=== PATIENT | male | born 1960 ===

== ENCOUNTER 2018-06-27 10:18 | Emergency (ER) | payer OTHER ==
[2018-06-27 10:32] VITALS: BMI 23.9
--- NOTE | 2018-06-27 11:19 | ED PDOC ---
HPI: Skin/Bite Injury Time Seen by Provider: 06/27/18 10:24 Chief Complaint (Nursing): Abnormal Skin Integrity Chief Complaint (Provider): "Infection" History Per: Patient Additional Complaint(s): 57 yo male, denies nay PMH, presents to ED due to a worsening red, swollen, painful and now draining mass to left forearm. Pt reports the mass started off as a "small pimple." However, symptoms worsened in the last 3 days. Pt reports pain with flexion of arm at this time. tactiel fever at home reported as well. Past Medical History Reviewed: Nursing Documentation, Vital Signs Vital Signs: Last Vital Signs Temp 99.3 F 06/27/18 10:30 Pulse 83 06/27/18 10:30 Resp 15 06/27/18 10:30 BP 108/61 06/27/18 10:30 Pulse Ox 97 06/27/18 10:30 - Medical History PMH: No Chronic Diseases - Surgical History Surgical History: No Surg Hx - Family History Family History: States: Unknown Family Hx - Living Arrangements Living Arrangements: With Family - Social History Current smoker - smoking cessation education provided: No Alcohol: Social Drugs: Denies - Immunization History Hx Tetanus Toxoid Vaccination: No Hx Influenza Vaccination: No Hx Pneumococcal Vaccination: No - Home Medications Home Medications: Ambulatory Orders Medication Instructions Recorded Clindamycin [Cleocin] 300 mg PO BID #14 cap 06/27/18 Mupirocin 2% Cream [Bactroban 30 applic TOP BID #1 tube 06/27/18 Cream] - Allergies Allergies/Adverse Reactions: Allergies Allergy/AdvReac Type Severity Reaction Status Date / Time Penicillins Allergy RASH Verified 06/27/18 10:55 Review of Systems ROS Statement: Except As Marked, All Systems Reviewed And Found Negative Skin: Positive for: Lesions Physical Exam - Reviewed Nursing Documentation Reviewed: Yes Vital Signs Reviewed: Yes - Physical Exam Appears: Positive for: Well, Non-toxic, No Acute Distress Head Exam: Positive for: ATRAUMATIC, NORMAL INSPECTION, NORMOCEPHALIC Skin: Positive for: Normal Color, Warm, DRY Eye Exam: Positive for: EOMI, Normal appearance, PERRL ENT: Positive for: Normal ENT Inspection Neck: Positive for: Normal, Painless ROM Cardiovascular/Chest: Positive for: Regular Rate, Rhythm Respiratory: Positive for: CNT, Normal Breath Sounds Gastrointestinal/Abdominal: Positive for: Normal Exam, Soft Back: Positive for: Normal Inspection Extremity: Positive for: Normal ROM, Tenderness, Other ((+) 4 cm open ulcerated mass to left foream, draining serous-sengiunous fluid, ~ 5 cm area of surrounding erytehma) Neurological/Psych: Positive for: Awake, Alert, Normal Tone - Laboratory Results Result Diagrams: 06/27/18 11:30 06/27/18 11:30 - ECG O2 Sat by Pulse Oximetry: 97 Medical Decision Making Medical Decision Making: IV access established and diagnostics ordered. Wound culture obtained, as well as blood cultures and IV Vanco started. Site needle aspirated, no purulent discharge obtained. Pt reported (+) PCN allergy Labs resulted and reviewed. XR: NAd, as read by [facility] XR IMPRESSION: No evidence of abscess. Possible focal cellulitis. Pt stable for discharge at this time with trial on outpt therapy. Pt advised warm compresses and to continue antibiotic regimen as prescribed advised wound check in 48 hours. return to ED if at anytime condition worsens Disposition - Clinical Impression Clinical Impression: Cellulitis, Abscess - Patient ED Disposition Is Patient to be Admitted: No - Disposition Disposition: Routine/Home Disposition Time: 15:25 Condition: STABLE Prescriptions: Clindamycin [Cleocin] 300 mg PO BID #14 cap Mupirocin 2% Cream [Bactroban Cream] 30 applic TOP BID #1 tube Instructions: Cellulitis (Skin Infection), Adult (DC), Skin Abscess Forms: [facility] (Nepali)
[2018-06-27 11:38] LABS: BASO % 0.4 % (0.0-2.0); EOS # 0.1 K/uL (0.0-0.7); EOS % 0.7 % (0.0-4.0); HEMOGLOBIN 9.5 g/dL (12.0-18.0); LYMPH # 0.7 K/uL (1.0-4.3); LYMPH % 5.7 % (20.0-40.0); MEAN CELL VOLUME 64.8 fl (80.0-94.0); MEAN CORPUSCULAR HEMOGLOBIN 19.5 pg (27.0-31.0); MEAN CORPUSCULAR HGB CONC 30.2 g/dL (33.0-37.0); MEAN PLATELET VOLUME 7.2 fl (7.2-11.7); MONO # 1.4 K/uL (0.0-0.8); MONO % 10.6 % (0.0-10.0); NEUT # 10.9 K/uL (1.8-7.0); NEUT % 82.6 % (50.0-75.0); NRBC % 0.1 % (0.0-0.0); PLATELET COUNT 359 K/uL (130-400); RBC 4.85 Mil/uL (4.40-5.90); RED CELL DISTRIBUTION WIDTH 18.4 % (11.5-14.5); WHITE BLOOD COUNT 13.2 K/uL (4.8-10.8)
[2018-06-27] MEDS ORDERED: Vancomycin 1 g Inj ONE (11:38)
[2018-06-27 11:42] LABS: VENOUS BLOOD GAS BASE EXCESS 1.9 mmol/L (0.0-2.0); VENOUS BLOOD GAS PCO2 50 mmHg (40-60); VENOUS BLOOD GAS PO2 26 mm/Hg (30-55); VENOUS BLOOD PH 7.36 (7.32-7.43)
[2018-06-27 11:58] LABS: ALB/GLOB RATIO 1.3 (1.0-2.1); ALBUMIN 4.4 g/dL (3.5-5.0); ALT/SGPT 15 U/L (21-72); AST/SGOT 21 U/L (17-59); BLOOD UREA NITROGEN 10 mg/dl (9-20); CALCIUM 9.4 mg/dL (8.4-10.2); GFR NON-AFRICAN AMERICAN > 60
[2018-06-27 13:29] LABS: EOSINOPHIL 1 % (0-7); LYMPHOCYTE 6 % (20-50); MONOCYTE 10 % (0-10); NEUTROPHIL 83 % (42-75); TOTAL CELLS COUNTED 100
[2018-06-27 13:32] LABS: ANISOCYTOSIS SLIGHT; MICROCYTOSIS MODERATE; PLATELET ESTIMATE NORMAL (NORMAL)
[2018-06-27 13:33] LABS: HYPOCHROMIC MODERATE; OVALOCYTES SLIGHT; TARGET CELLS SLIGHT
[2018-06-27 13:34] LABS: TEARDROP CELLS SLIGHT
--- NOTE | 2018-06-27 14:40 | RAD ---
Date of service: 06/27/2018 PROCEDURE: Radiographs of the Left Forearm HISTORY: abscess/cellulitis developing. r/o osteo COMPARISON: None available. TECHNIQUE: Frontal and lateral views obtained. 2 views obtained. FINDINGS: BONES: No fracture or destructive lesion. Old fracture of the ulnar styloid JOINT SPACES: Unremarkable. OTHER FINDINGS: None. IMPRESSION: Unremarkable radiographs of the left forearm.
--- NOTE | 2018-06-27 14:53 | US ---
Date of service: 06/27/2018 PROCEDURE: Ultrasound soft tissue left upper extremity HISTORY: left forearm, over ulcer. assess for fluid collect COMPARISON: Not available TECHNIQUE: Targeted ultrasound examination was performed along the dorsal aspect of the forearm just distal to the elbow. The area of concern is beneath an open wound. FINDINGS: In the area of concern there is focal soft tissue swelling with hypervascularity. There is no discrete collection nor any solid mass identified. Findings may reflect cellulitis. There is no other abnormality demonstrated. IMPRESSION: No evidence of abscess. Possible focal cellulitis.
[2018-06-27] MEDS ORDERED: Lidocaine Hydrochloride 1% 10 ML ONE (14:56)
[2018-06-27 15:46] VITALS: BP 110/78; PULSE 78; RESP 20; TEMP 97.6; O2SAT 98
== END 2018-06-27 15:46 | disposition home or self-care (01) ==
LOC: H.ER 10:18
DX: L03.114 Cellulitis of left upper limb (principal); Z88.0 Allergy status to penicillin